=== PATIENT | male | born 1995 | race Caucasian/White ===

== ENCOUNTER 2018-10-22 20:17 | Emergency (ER) | payer SELFPAY ==
[~2018-10-22] VITALS: Ht 175.3 cm; Wt 56.7 kg
[2018-10-22 20:21] VITALS: BP 138/74
--- NOTE | 2018-10-22 22:13 | RAD ---
CHEST PA LATERAL History: COUGH, CONGESTION, SOA X1 WEEK. Heart size is not enlarged. No evidence of pneumothorax. No evidence of pleural effusion. No evidence of consolidating infiltrate. Regional skeleton appears intact. IMPRESSION: No evidence of consolidating infiltrate. Electronically signed by: Claus Hutchins MD (10/22/2018 10:10 PM) [facility]
--- NOTE | 2018-10-22 22:28 | PHYS DOC ---
Past Medical History Past Medical History: No Pertinent History (JONELLE SCHNEIDER APRN) Past Surgical History: No Surgical History (JONELLE SCHNEIDER APRN) Additional Information: nonsmoker Alcohol Use: None Drug Use: Marijuana (JONELLE SCHNEIDER APRN) Adult General Chief Complaint Chief Complaint: COUGH HPI HPI Patient is a 23-year-old male that presents with loss of appetite, sore throat, cough, and upper respiratory symptoms since Sunday. URI symptoms have improved and he is able to keep fluids down. Has been trying OTC medications at home which has been helping. The severity of the illness is 5/10, with no pain but has body aches. His girlfriend has had similar symptoms. (JONELLE SCHNEIDER APRN) Review of Systems Review of Systems Constitutional: Reports fever and chills [] Eyes: Denies change in visual acuity, redness, or eye pain [] HENT: Reports nasal congestion and sore throat [] Respiratory: Reports cough, denies shortness of breath [] Cardiovascular: Denies CP or palpitations GI: Denies abdominal pain, nausea, vomiting, Reports diarrhea [] : Denies dysuria or hematuria [] Musculoskeletal: Denies back pain or joint pain [] Integument: Denies rash or skin lesions [] Neurologic: Denies headache, focal weakness or sensory changes [] Endocrine: Denies polyuria or polydipsia [] Complete systems were reviewed and found to be within normal limits, except as documented in this note. (JONELLE SCHNEIDER APRN) Allergies Allergies Allergies Coded Allergies Type Severity Reaction Last Updated Verified No Known Drug Allergies 10/22/18 No (ONELIA ROBINS MD) Physical Exam Physical Exam Constitutional: Well developed, well nourished, no acute distress, non-toxic appearance. [] HENT: Normocephalic, atraumatic, oropharynx moist, no oral exudates, nose normal. [] Eyes: PERRLA, conjunctiva normal, no discharge. [] Neck: Normal range of motion, no tenderness, supple, no stridor. [] Cardiovascular:Heart rate regular rhythm, no murmur [] Lungs & Thorax: Bilateral breath sounds clear to auscultation [] Abdomen: Soft, no tenderness, no masses, no pulsatile masses. [] Skin: Warm, dry, no erythema, no rash. [] Back: No tenderness, no CVA tenderness. [] Extremities: No tenderness, no cyanosis, no clubbing, ROM intact, no edema. [] Neurologic: Alert and oriented X 3, normal motor function, normal sensory function, no focal deficits noted. [] Psychologic: Affect normal, judgement normal, mood normal. [] (JONELLE SCHNEIDER APRN) Current Patient Data Vital Signs Vital Signs Date Time Temp Pulse Resp B/P (MAP) Pulse Ox O2 Delivery O2 Flow Rate FiO2 10/22/18 20:21 98.3 105 18 138/74 (95) 99 Room Air 98.3 (ONELIA ROBINS MD) EKG EKG [] (JONELLE SCHNEIDER APRN) Radiology/Procedures Radiology/Procedures []PATIENT: ELTON DENIS MACCOUNT: [id number]#: [id number] : 1995 LOCATION: ER AGE: 23 SEX: M EXAM STATUS: REG ER ORD. PHYSICIAN: JONELLE SCHNEIDER APRN REASON: cough PROCEDURE: CHEST PA & LATERAL CHEST PA LATERAL History: COUGH, CONGESTION, SOA X1 WEEK. Heart size is not enlarged. No evidence of pneumothorax. No evidence of pleural effusion. No evidence of consolidating infiltrate. Regional skeleton appears intact. IMPRESSION: No evidence of consolidating infiltrate. Electronically signed by: Jonelle Hutchins MD (10/22/2018 10:10 PM) [facility] (JONELLE SCHNEIDER APRN) Course & Med Decision Making Course & Med Decision Making Pertinent Labs and Imaging studies reviewed. (See chart for details) Discussed with patient that his signs and symptoms were likely viral in nature and it has to run its course. Ordered a chest x-ray to r/o pneumonia has he had been coughing a lot. Chest x-ray was negative. Offered IV fluids, patient declined. Offered Tessalon Perles to go home and patient declined and states that he will keep using OTC medications. Will send patient home and discussed with him that he is contagious. (JONELLE SCHNEIDER APRN) Course & Med Decision Making Staff Physician Addendum: I was working in the ER during the course of this patient's visit. I was available for consultation as needed, but I was not directly involved in the care of this patient. (ONELIA ROBINS MD) Dragon Disclaimer Dragon Disclaimer This electronic medical record was generated, in whole or in part, using a voice recognition dictation system. (JONELLE SCHNEIDER APRN) Departure Departure Impression: Primary Impression: Viral illness Disposition: HOME, SELF-CARE Condition: STABLE Referrals: NO PCP (PCP) Additional Instructions: Please continue to use supportive care, fluids, and OTC medications. Do not work until you have been afebrile for 24 hours. JONELLE SCHNEIDER APRN Oct 22, 2018 22:28 ONELIA ROBINS MD October 23, 2018 00:16
== END 2018-10-22 22:42 | disposition home or self-care (01) ==
LOC: ER 20:17
DX: B33.8 Other specified viral diseases (principal); J02.9 Acute pharyngitis, unspecified; R50.9 Fever, unspecified; R09.81 Nasal congestion; R05 Cough; R63.0 Anorexia
CPT/HCPCS: 71046; 99284

== ENCOUNTER 2019-01-06 15:35 | Emergency (ER) | payer SELFPAY ==
[~2019-01-06] VITALS: Ht 172.7 cm; Wt 61.2 kg
--- NOTE | 2019-01-06 16:30 | RAD ---
Chest, PA and Lateral: Technique: PA and lateral views of the chest were obtained. History: Chest pain. Comparison: 10/22/2018. Findings: The heart and pulmonary vasculature appear within normal limits. The lungs are clear. The pleural margins are clear. Impression: No acute chest process is seen. Electronically signed by: Anand Bassett MD (01/06/2019 4:27 PM) [id number]
[2019-01-06 16:36] LABS: HEMOGLOBIN ISTAT 13.6 g/dL (14-18); ION CA ISTAT 1.19 mmol/L (1.13-1.32); POTASSIUM ISTAT 3.7 mmol/L (3.5-5.0)
[2019-01-06 16:40] LABS: BILIRUBIN,URINE NEGATIVE (NEG); CLARITY,URINE CLEAR; COLOR,URINE YELLOW; NITRITE,URINE NEGATIVE (NEG); PH,URINE 5.5; PROTEIN,URINE NEGATIVE (NEG-TRACE); UROBILINOGEN,URINE 0.2 mg/dL (0.2 mg/dL)
--- NOTE | 2019-01-06 16:44 | PHYS DOC ---
Past Medical History Past Medical History: No Pertinent History Past Surgical History: No Surgical History Alcohol Use: Occasionally Drug Use: Marijuana Adult General Chief Complaint Chief Complaint: CHEST PAIN HPI HPI Patient is a 23 year old male patient presenting to the ED today with substernal 6 out of 10 sharp chest pain worse when he lifts items at work and moves his arms around, symptoms began today at noon. Denies pain radiating to his back. Denies any family history of cardiac events before the age of 50. He states his father of cancer, he states his mother is still alive with diabetes. He states immobilization relieves the pain. Denies any history of smoking. Review of Systems Review of Systems Constitutional: Denies fever or chills [] Eyes: Denies change in visual acuity, redness, or eye pain [] HENT: Denies nasal congestion or sore throat [] Respiratory: Denies cough or shortness of breath [] Cardiovascular: Reports chest pain GI: Denies abdominal pain, nausea, vomiting, bloody stools or diarrhea [] : Denies dysuria or hematuria [] Musculoskeletal: Denies back pain or joint pain [] Integument: Denies rash or skin lesions [] Neurologic: Denies headache, focal weakness or sensory changes [] ] All other systems were reviewed and found to be within normal limits, except as documented in this note. Allergies Allergies Allergies Coded Allergies Type Severity Reaction Last Updated Verified No Known Drug Allergies 10/22/18 No Physical Exam Physical Exam Constitutional: Well developed, well nourished, no acute distress, non-toxic appearance. [] HENT: Normocephalic, atraumatic, bilateral external ears normal, oropharynx moist, no oral exudates, nose normal. [] Eyes: PERRLA, EOMI, conjunctiva normal, no discharge. [] Neck: Normal range of motion, no tenderness, supple, no stridor. [] Cardiovascular:Heart rate regular rhythm, no murmur [] Lungs & Thorax: Bilateral breath sounds clear to auscultation [] Abdomen: Bowel sounds normal, soft, no tenderness, no masses, no pulsatile ma sses. [] Skin: Warm, dry, no erythema, no rash. [] Back: No tenderness, no CVA tenderness. [] Extremities: No tenderness, no cyanosis, no clubbing, ROM intact, no edema. [] Neurologic: Alert and oriented X 3, normal motor function, normal sensory function, no focal deficits noted. [] Psychologic: Affect normal, judgement normal, mood normal. [] Current Patient Data Vital Signs Vital Signs Date Time Temp Pulse Resp B/P (MAP) Pulse Ox O2 Delivery O2 Flow Rate FiO2 01/06/19 15:46 98.2 90 16 120/72 (88) 99 Room Air 98.2 Lab Values Laboratory Tests Test 01/06/19 16:25 POC Hemoglobin 13.6 g/dL (14-18) L POC Hematocrit 40 % (37-52) Urine Collection Type Void Urine Color Yellow Urine Clarity Clear Urine pH 5.5 Urine Specific [place] 1.025 Urine Protein Negative mg/dL (NEG-TRACE) Urine Glucose (UA) Negative mg/dL (NEG) Urine Ketones (Stick) Negative mg/dL (NEG) Urine Blood Negative (NEG) Urine Nitrite Negative (NEG) Urine Bilirubin Negative (NEG) Urine Urobilinogen Dipstick 0.2 mg/dL (0.2 mg/dL) Urine Leukocyte Esterase Negative (NEG) Urine RBC 0 /HPF (0-2) Urine WBC Rare /HPF (0-4) Urine Bacteria 0 /HPF (0-FEW) Urine Mucus Marked /LPF POC Sodium 142 mmol/L (135-145) POC Potassium 3.7 mmol/L (3.5-5.0) POC Chloride 104 mmol/L (98-110) POC Total CO2 26 mmol/L (23-32) Anion Gap 16 mmol/L (6-14) H POC Blood Urea Nitrogen 5 mg/dL (8-26) L POC Creatinine 1.0 mg/dL (0.5-1.4) Glucose Level 82 mg/dL (70-99) POC Ionized Calcium (Aurea) 1.19 mmol/L (1.13-1.32) POC Troponin I 0.00 ng/ml (<0.08) Laboratory Tests 01/06/19 16:25 EKG EKG [address] Singleton sinus rhythm HR 83 no STEMI Radiology/Procedures Radiology/Procedures []PROCEDURE: CHEST PA & LATERAL Chest, PA and Lateral: Technique: PA and lateral views of the chest were obtained. History: Chest pain. Comparison: 10/22/2018. Findings: The heart and pulmonary vasculature appear within normal limits. The lungs are clear. The pleural margins are clear. Impression: No acute chest process is seen. Electronically signed by: Anand Bassett MD (01/06/2019 4:27 PM) [facility] DICTATED and SIGNED BY: ANAND BASSETT MD DATE: 01/06/19 1627 Course & Med Decision Making Course & Med Decision Making Pertinent Labs and Imaging studies reviewed. (See chart for details) This is a 23-year-old male patient with no significant medical history presented to the ED today complaining of substernal chest pain only when he is moving his arms or lifting heavy items. EKG is negative, i-STAT troponin and i-STAT chemistry negative. Vitals are stable. No cardiac history in the family. See Heart score below. Patient was discharged to home. OTC pain relievers recommended. Follow-up with pediatric audiologist. Dragon Disclaimer Dragon Disclaimer This electronic medical record was generated, in whole or in part, using a voice recognition dictation system. The HEART Score for CP Pts HEART Score for Chest Pain: HEART Score for Chest Pain Response (Comments) Value History Slighlty/Non-Suspicious 0 ECG Normal 0 Age < 45 0 Risk Factors No Risk Factors 0 Troponin < Normal Limit 0 Total 0 Risk Factors: Risk Factors: DM, Current or recent (<one month) smoker, HTN, HLP, family history of CAD, obesity. Risk Scores: Score 0 - 3: 2.5% MACE over next 6 weeks - Discharge Home Score 4 - 6: 20.3% MACE over next 6 weeks - Admit for Clinical Observation Score 7 - 10: 72.7% MACE over next 6 weeks - Early Invasive Strategies Departure Departure Impression: Primary Impression: Chest pain Disposition: HOME, SELF-CARE Condition: STABLE Referrals: NO PCP (PCP) GLEN DASH MD Follow up in one week Patient Instructions: Chest Pain (Nonspecific), [id number] Additional Instructions: You were evaluated for chest pain, your cardiac workup is negative. We provided you pediatric audiologist, follow-up with them as needed. Take Tylenol/Motrin as needed for pain. Avoid lifting heavy items if this is the source of your pain. Problem Qualifiers Primary Impression: Chest pain Chest pain type: unspecified Qualified Codes: R07.9 - Chest pain, unspecified GUADALUPEJILLIAN FISHING VESSEL MATE Jan 06, 2019 16:43
[2019-01-06 16:47] LABS: BACTERIA,URINE 0 /HPF (0-FEW); RBC,URINE 0 /HPF (0-2); WBC,URINE RARE /HPF (0-4)
[2019-01-06 17:07] LABS: BARBITURATES NEG (NEG); BENZODIAZEPINES NEG (NEG); CANNABINOIDS POS (NEG); COCAINE NEG (NEG); METHADONE NEG (NEG); OPIATES NEG (NEG); PHENCYCLIDINE NEG (NEG)
[2019-01-06 17:09] LABS: AMPHETAMINE/METHAMPHETAMINE NEG (NEG)
[2019-01-06 17:18] VITALS: BP 110/72
--- NOTE | 2019-01-07 07:02 | EKG ---
[facility] [address] [place] [address] Test Date: 2019-01-06 Test Time: 15:42:29 Pat Name: ELTON DENIS Department: Room: Gender: T[employer] Straightener: : 1995 Requested By: JILLIAN BUTCHER Order Number: [id number] Reading MD: Measurements Intervals [place] Rate: 83 P: 63 [place]: 148 QRS: 48 QRSD: 72 T: 54 QT: 322 QTc: 383 Interpretive Statements SINUS RHYTHM LEFT ATRIAL ABNORMALITY QRS(T) CONTOUR ABNORMALITY CONSIDER ANTEROLATERAL MYOCARDIAL DAMAGE ABNORMAL ECG RI6.01 No previous ECG available for comparison
== END 2019-01-06 17:19 | disposition home or self-care (01) ==
LOC: ER 15:35
DX: R07.2 Precordial pain (principal)
CPT/HCPCS: 71046; 80047; 80307; 81001; 84484; 93005; 99285

== ENCOUNTER 2019-04-22 08:04 | Emergency (ER) | payer SELFPAY ==
[~2019-04-22] VITALS: Ht 175.3 cm; Wt 56.7 kg
[2019-04-22] MEDS ORDERED: IV NORMAL SALINE 1000ML BAG 1,000 ML IV SCH (08:16)
[2019-04-22] MEDS ORDERED: KETOROLAC 30 MG/ML VIAL. ONE (08:21)
--- NOTE | 2019-04-22 08:23 | PHYS DOC ---
Past Medical History Past Medical History: No Pertinent History Past Surgical History: No Surgical History Alcohol Use: Occasionally Drug Use: Marijuana Adult General Chief Complaint Chief Complaint: ABDOMINAL PAIN HPI HPI Patient is a 23-year-old male who presents with complaint of generalized abdominal pain that started about 10 hours ago after eating [employer] last night. Patient states that he thinks he has food poisoning. He states that he has had a little bit of nausea but no vomiting. He states that he tried to induce vomiting but was unable to do so. He denies any diarrhea. He denies any fever. Patient rates his pain to be an 8 to a 9 out of 10. He denies any radiation of the pain. Patient very demanding of staff, stating that he needs a strong pain medicine through the IV immediately upon arrival.[] Review of Systems Review of Systems Constitutional: Denies fever or chills [] Respiratory: Denies cough or shortness of breath [] Cardiovascular: No additional information not addressed in HPI [] GI: Complains of abdominal pain without vomiting or diarrhea [] : Denies dysuria or hematuria [] Musculoskeletal: Denies back pain or joint pain [] All other systems were reviewed and found to be within normal limits, except as documented in this note. Current Medications Current Medications Current Medications Medications (Trade) Dose Ordered Sig/Angelique Start Time Stop Time Status Last Admin Dose Admin Info (CONTRAST GIVEN -- Rx MONITORING) 1 each PRN DAILY PRN 04/22/19 08:45 04/24/19 08:44 Iohexol (Omnipaque 300 Mg/ml) 75 ml 1X ONCE 04/22/19 08:45 04/22/19 08:46 DC 04/22/19 08:52 75 ML Ketorolac Tromethamine (Toradol 30mg Vial) 30 mg STK-MED ONCE 04/22/19 08:21 04/22/19 08:22 DC Ondansetron HCl (Zofran) 4 mg 1X ONCE 04/22/19 08:30 04/22/19 08:31 DC 04/22/19 08:23 4 MG Sodium Chloride 1,000 ml @ 1,000 mls/hr Q1H 04/22/19 08:16 04/22/19 09:15 DC 04/22/19 08:24 1,000 MLS/HR Allergies Allergies Allergies Coded Allergies Type Severity Reaction Last Updated Verified No Known Drug Allergies 10/22/18 No Physical Exam Physical Exam Constitutional: Well developed, well nourished, no acute distress, non-toxic appearance. [] HENT: Normocephalic, atraumatic, bilateral external ears normal, oropharynx moist, no oral exudates, nose normal. [] Eyes: PERRLA, EOMI, conjunctiva normal, no discharge. [] Neck: Normal range of motion, no tenderness, supple. [] Cardiovascular: Regular rate and rhythm[] Lungs & Thorax: Bilateral breath sounds clear to auscultation [] Abdomen: Bowel sounds normal, soft, with diffuse reported tenderness, no guarding. [] Skin: Warm, dry, no erythema, no rash. [] Extremities: No tenderness, no cyanosis, no clubbing, ROM intact, no edema. [] Neurologic: Alert and oriented X 3, normal motor function, normal sensory function, no focal deficits noted. [] Current Patient Data Vital Signs Vital Signs Date Time Temp Pulse Resp B/P (MAP) Pulse Ox O2 Delivery O2 Flow Rate FiO2 04/22/19 08:08 98.1 63 16 117/77 (90) 99 Room Air 98.1 Lab Values Laboratory Tests Test 04/22/19 08:12 White Blood Count 16.8 x10^3/uL (4.0-11.0) H Red Blood Count 5.01 x10^6/uL (4.30-5.70) Hemoglobin 15.1 g/dL (13.0-17.5) Hematocrit 46.0 % (39.0-53.0) Mean Corpuscular Volume 92 fL (79-100) Mean Corpuscular Hemoglobin 30 pg (25-35) Mean Corpuscular Hemoglobin Concent 33 g/dL (31-37) Red Cell Distribution Width 13.7 % (11.5-14.5) Platelet Count 190 x10^3/uL (140-400) Neutrophils (%) (Auto) 85 % (31-73) H Lymphocytes (%) (Auto) 7 % (24-48) L Monocytes (%) (Auto) 7 % (0-9) Eosinophils (%) (Auto) 1 % (0-3) Basophils (%) (Auto) 0 % (0-3) Neutrophils # (Auto) 14.2 x10^3/uL (1.8-7.7) H Lymphocytes # (Auto) 1.2 x10^3/uL (1.0-4.8) Monocytes # (Auto) 1.1 x10^3/uL (0.0-1.1) Eosinophils # (Auto) 0.2 x10^3/uL (0.0-0.7) Basophils # (Auto) 0.1 x10^3/uL (0.0-0.2) Platelet Estimate Pending Sodium Level 142 mmol/L (136-145) Potassium Level 3.8 mmol/L (3.5-5.1) Chloride Level 105 mmol/L (98-107) Carbon Dioxide Level 28 mmol/L (21-32) Anion Gap 9 (6-14) Blood Urea Nitrogen 6 mg/dL (8-26) L Creatinine 1.0 mg/dL (0.7-1.3) Estimated GFR (Cockcroft-Gault) 92.6 BUN/Creatinine Ratio 6 (6-20) Glucose Level 106 mg/dL (70-99) H Calcium Level 8.8 mg/dL (8.5-10.1) Total Bilirubin 0.7 mg/dL (0.2-1.0) Aspartate Amino Transferase (AST) 20 U/L (15-37) Alanine Aminotransferase (ALT) 11 U/L (16-63) L Alkaline Phosphatase 53 U/L (46-116) Total Protein 6.7 g/dL (6.4-8.2) Albumin 3.8 g/dL (3.4-5.0) Albumin/Globulin Ratio 1.3 (1.0-1.7) Lipase 108 U/L (73-393) Laboratory Tests 04/22/19 08:12 Laboratory Tests 04/22/19 08:12 EKG EKG [] Radiology/Procedures Radiology/Procedures [] Impressions: PROCEDURE: CT ABD PELV W/ IV CONTRST ONLY CT ABD PELV W/ IV CONTRST ONLY Indication: Generalized abdominal pain Technique: Postcontrast CT imaging was performed of the abdomen pelvis, multiplanar reconstruction images submitted. No oral contrast was given. One or more of the following individualized dose reduction techniques were utilized for this examination: 1. Automated exposure control 2. Adjustment of the mA and/or kV according to patient size 3. Use of iterative reconstruction technique. Comparison: None Findings: There is no abnormality of the limited visualized lung bases. No focal abnormalities identified of the liver, pancreas, spleen. Gallbladder is present without obvious intraluminal abnormality by CT there is no adrenal nodularity. Both kidneys enhance, no hydronephrosis. Accurate evaluation of bowel somewhat limited without oral contrast and also due to the paucity of intra-abdominal and intrapelvic fat. At least a segment of normal caliber appendix is believed to be visualized. There is no bowel dilatation, free fluid, free air. IMPRESSION: 1. No convincing acute abnormality is identified, limited evaluation of bowel without oral contrast. At least a segment of normal appendix is believed to be visualized. Electronically signed by: Gege Gamez MD (04/22/2019 9:08 AM) [facility] DICTATED and SIGNED BY: GEGE GAMEZ MD DATE: 04/22/19907 Course & Med Decision Making Course & Med Decision Making Pertinent Labs and Imaging studies reviewed. (See chart for details) [] Dragon Disclaimer Dragon Disclaimer This electronic medical record was generated, in whole or in part, using a voice recognition dictation system. Departure Departure Impression: Primary Impression: Generalized abdominal pain Disposition: HOME, SELF-CARE Condition: STABLE Referrals: NO PCP (PCP) Patient Instructions: Abdominal Pain Scripts Dicyclomine Hcl (DICYCLOMINE HCL) 20 Mg Tablet 1 TAB PO TID PRN for abdominal discomfort, #21 TAB Prov: ROLANDO LUJAN Jr. DO 04/22/19 Ondansetron Hcl (ZOFRAN) 4 Mg Tablet 4 MG PO PRN TID PRN for NAUSEA, #15 TAB nausea/vomiting Prov: ROLANDO LUJAN Jr. DO 04/22/19 ROLANDO LUJAN Jr. DO Apr 22, 2019 08:23
[2019-04-22 08:27] LABS: BASO # 0.1 x10^3/uL (0.0-0.2); BASO % 0 % (0-3); EOS # 0.2 x10^3/uL (0.0-0.7); EOS % 1 % (0-3); HEMOGLOBIN 15.1 g/dL (13.0-17.5); LYMPH # 1.2 x10^3/uL (1.0-4.8); LYMPH % 7 % (24-48); MEAN CORPUSCULAR HEMOGLOBIN 30 pg (25-35); MEAN CORPUSCULAR HGB CONC 33 g/dL (31-37); MEAN CORPUSCULAR VOLUME 92 fL (79-100); MONO # 1.1 x10^3/uL (0.0-1.1); MONO % 7 % (0-9); NEUT # 14.2 x10^3/uL (1.8-7.7); NEUT % 85 % (31-73); PLATELET COUNT 190 x10^3/uL (140-400); RED BLOOD COUNT 5.01 x10^6/uL (4.30-5.70); RED CELL DISTRIBUTION WIDTH 13.7 % (11.5-14.5); WHITE BLOOD COUNT 16.8 x10^3/uL (4.0-11.0)
[2019-04-22] MEDS ORDERED: KETOROLAC 30 MG/ML VIAL. IV ONE (08:30)
[2019-04-22] MEDS ORDERED: ONDANSETRON PF 4 MG/2 ML VIAL. IV ONE (08:30)
[2019-04-22 08:32] LABS: CALCIUM 8.8 mg/dL (8.5-10.1); GFR 92.6; POTASSIUM 3.8 mmol/L (3.5-5.1)
[2019-04-22 08:38] LABS: ALBUMIN 3.8 g/dL (3.4-5.0); ALBUMIN/GLOBULIN RATIO 1.3 (1.0-1.7); TOTAL BILIRUBIN 0.7 mg/dL (0.2-1.0); TOTAL PROTEIN 6.7 g/dL (6.4-8.2)
[2019-04-22] MEDS ORDERED: IOHEXOL 300 MG/ML 100ML VIAL. IV ONE (08:45)
[2019-04-22] MEDS ORDERED: CONTRAST GIVEN. MC PRN (08:45)
--- NOTE | 2019-04-22 09:12 | RAD ---
CT ABD PELV W/ IV CONTRST ONLY Indication: Generalized abdominal pain Technique: Postcontrast CT imaging was performed of the abdomen pelvis, multiplanar reconstruction images submitted. No oral contrast was given. One or more of the following individualized dose reduction techniques were utilized for this examination: 1. Automated exposure control 2. Adjustment of the mA and/or kV according to patient size 3. Use of iterative reconstruction technique. Comparison: None Findings: There is no abnormality of the limited visualized lung bases. No focal abnormalities identified of the liver, pancreas, spleen. Gallbladder is present without obvious intraluminal abnormality by CT there is no adrenal nodularity. Both kidneys enhance, no hydronephrosis. Accurate evaluation of bowel somewhat limited without oral contrast and also due to the paucity of intra-abdominal and intrapelvic fat. At least a segment of normal caliber appendix is believed to be visualized. There is no bowel dilatation, free fluid, free air. IMPRESSION: 1. No convincing acute abnormality is identified, limited evaluation of bowel without oral contrast. At least a segment of normal appendix is believed to be visualized. Electronically signed by: Alvaro Muniz MD (04/22/2019 9:08 AM) [facility]
[2019-04-22 09:17] VITALS: BP 100/68
[2019-04-22] MEDS ORDERED: ONDA4TAB7 PO (09:26)
[2019-04-22] MEDS ORDERED: DICY20TA3 PO (09:26)
[2019-04-22] MEDS ORDERED: diphenhydrAMINE 50 MG/ML VIAL IVP ONE (09:30)
[2019-04-22] MEDS ORDERED: METOCLOPRAMIDE HCL 10 MG/2 ML VIAL. IVP ONE (09:30)
[2019-04-22 09:41] LABS: BILIRUBIN,URINE NEGATIVE (NEG); CLARITY,URINE CLEAR; COLOR,URINE YELLOW; NITRITE,URINE NEGATIVE (NEG); PH,URINE 7.5; PROTEIN,URINE NEGATIVE (NEG-TRACE); UROBILINOGEN,URINE 0.2 mg/dL (0.2 mg/dL)
[2019-04-22 09:44] LABS: % BANDS 10 % (0-9); % LYMPHS 10 % (24-48); % MONOS 3 % (0-10); % SEGS 77 % (35-66); PLT ESTIMATE ADEQUATE (ADEQUATE)
[2019-04-22 09:45] LABS: TOXIC GRANULATION PRESENT
[2019-04-22 09:46] LABS: BARBITURATES NEG (NEG); BENZODIAZEPINES NEG (NEG); CANNABINOIDS POS (NEG); COCAINE NEG (NEG); METHADONE NEG (NEG); OPIATES NEG (NEG); PHENCYCLIDINE NEG (NEG)
[2019-04-22 09:47] LABS: AMPHETAMINE/METHAMPHETAMINE NEG (NEG)
[2019-04-22 10:23] LABS: SQUAMOUS EPITHELIAL CELL,UR FEW /LPF
[2019-04-22 10:27] LABS: SPERM,URINE PRESENT /HPF
[2019-04-22 10:28] LABS: BACTERIA,URINE FEW /HPF (0-FEW); RBC,URINE RARE /HPF (0-2); WBC,URINE RARE /HPF (0-4)
== END 2019-04-22 10:07 | disposition home or self-care (01) ==
LOC: ER 08:04
DX: R10.84 Generalized abdominal pain (principal)
CPT/HCPCS: 36415; 74177; 80053; 80307; 81001; 83690; 85007; 85025; 96374; 96375; 99285; J1885; J2405; J7030; Q9967

== ENCOUNTER 2019-04-24 16:14 | Inpatient (IN) | payer SELFPAY ==
[~2019-04-24] VITALS: Ht 172.7 cm; Wt 56.4 kg
[~2019-04-24 16:14] MED LIST: DICY20TA3 PO; ONDA4TAB7 PO
--- NOTE | 2019-04-24 17:28 | PHYS DOC ---
Past Medical History Past Medical History: No Pertinent History (RIAN DUGAN APRN) Past Surgical History: No Surgical History (RIAN DUGAN APRN) Alcohol Use: Occasionally Drug Use: Marijuana (RIAN DUGAN APRN) Attending Signature I have participated in the care of this patient and I have reviewed and agree with all pertinent clinical information above including history, exam, and recommendations. (TONO DANIEL MD) Adult General Chief Complaint Chief Complaint: ABDOMINAL PAIN HPI HPI Patient is a 23 year old [male who presents with [lower quadrant abdominal pain. Patient reports he had been seen here 2 days ago, had labs and imaging done, was told he had a virus in nature just run its course. Patient reports he had given it a couple days to run its course, continues to ask for discomfort. States his pain has gotten worse. States he started have some diarrhea today, denies any constipation. States he does feel he is a little bit of a fever today. States he has no appetite, discomfort continues. States when he urinates only a small amount of urine comes out at that time. States he has noticed his urine to be a little bit darker today.] (RIAN DUGAN APRN) Review of Systems Review of Systems Constitutional: Reports chills today[] Eyes: Denies change in visual acuity, redness, or eye pain [] HENT: Denies nasal congestion or sore throat [] Respiratory: Denies cough or shortness of breath [] Cardiovascular: No additional information not addressed in HPI [] GI: Reports lower right abdominal pain, nausea. Denies vomiting, reports 2 episodes of diarrhea today. Reports pain unchanged since last visit couple days ago.[] : Denies dysuria or hematuria does report his urine seemed to be darker today than normal [] Musculoskeletal: Denies back pain or joint pain [] Integument: Denies rash or skin lesions [] Neurologic: Denies headache, focal weakness or sensory changes [] Endocrine: Denies polyuria or polydipsia [] All other systems were reviewed and found to be within normal limits, except as documented in this note. (RIAN DUGAN APRN) Current Medications Current Medications Current Medications Medications (Trade) Dose Ordered Sig/Angelique Start Time Stop Time Status Last Admin Dose Admin Info (CONTRAST GIVEN -- Rx MONITORING) 1 each PRN DAILY PRN 04/24/19 18:15 04/26/19 18:14 Iohexol (Omnipaque 240 Mg/ml) 50 ml 1X ONCE 04/24/19 18:15 04/24/19 18:16 DC 04/24/19 19:00 50 ML Iohexol (Omnipaque 300 Mg/ml) 75 ml 1X ONCE 04/24/19 18:15 04/24/19 18:16 DC 04/24/19 19:00 75 ML Ketorolac Tromethamine (Toradol 15mg Vial) 15 mg 1X ONCE 04/24/19 18:00 04/24/19 18:01 DC 04/24/19 18:06 15 MG Ondansetron HCl (Zofran) 4 mg 1X ONCE 04/24/19 18:00 04/24/19 18:01 DC 04/24/19 18:06 4 MG Piperacillin Sod/ Tazobactam Sod 3.375 gm/Sodium Chloride 50 ml @ 100 mls/hr 1X ONCE 04/24/19 19:45 04/24/19 20:14 DC 04/24/19 20:06 100 MLS/HR Sodium Chloride 1,000 ml @ 1,000 mls/hr 1X ONCE 04/24/19 18:00 04/24/19 18:59 DC 04/24/19 18:05 1,000 MLS/HR (TONO DANIEL MD) Allergies Allergies Allergies Coded Allergies Type Severity Reaction Last Updated Verified No Known Drug Allergies 10/22/18 No (TONO DANIEL MD) Physical Exam Physical Exam Constitutional: Well developed, well nourished, no acute distress, non-toxic appearance. [] Neck: Normal range of motion, no tenderness, supple, no stridor. [] Cardiovascular:Heart rate regular rhythm, no murmur [] Lungs & Thorax: Bilateral breath sounds clear to auscultation [] Abdomen: Bowel sounds normal, soft, no masses, no pulsatile masses. Tenderness noted on palpation to right lower quadrant, no rebound tenderness noted. Positive discomfort at McBurney's point. Positive psoas, negative Rovsing, positive obturator[] Skin: Warm, dry, no erythema, no rash. [] Back: No tenderness, bilateral lower back CVA tenderness. [] Extremities: No tenderness, no cyanosis, no clubbing, ROM intact, no edema. [] Neurologic: Alert and oriented X 3, normal motor function, normal sensory function, no focal deficits noted. [] Psychologic: Affect normal, judgement normal, mood normal. [] (RIAN DUGAN APRN) Current Patient Data Vital Signs Vital Signs Date Time Temp Pulse Resp B/P (MAP) Pulse Ox O2 Delivery O2 Flow Rate FiO2 04/24/19 19:30 96 18 110/67 (81) 98 Room Air 04/24/19 16:52 99.1 99.1 (TONO DANIEL MD) Lab Values Laboratory Tests Test 04/24/19 16:25 04/24/19 17:50 04/24/19 18:50 Urine Collection Type Unknown Urine Color Janiya Urine Clarity Cloudy Urine pH 5.5 Urine Specific [place] >=1.030 Urine Protein 100 mg/dL (NEG-TRACE) Urine Glucose (UA) Negative mg/dL (NEG) Urine Ketones (Stick) 15 mg/dL (NEG) Urine Blood Large (NEG) Urine Nitrite Negative (NEG) Urine Bilirubin Small (NEG) Urine Urobilinogen Dipstick 1.0 mg/dL (0.2 mg/dL) Urine Leukocyte Esterase Negative (NEG) Urine RBC 3-5 /HPF (0-2) Urine WBC 0 /HPF (0-4) Urine Amorphous Sediment Present /HPF Urine Bacteria 0 /HPF (0-FEW) Urine Mucus Mod /LPF White Blood Count 23.6 x10^3/uL (4.0-11.0) H Red Blood Count 4.79 x10^6/uL (4.30-5.70) Hemoglobin 14.5 g/dL (13.0-17.5) Hematocrit 42.9 % (39.0-53.0) Mean Corpuscular Volume 90 fL (79-100) Mean Corpuscular Hemoglobin 30 pg (25-35) Mean Corpuscular Hemoglobin Concent 34 g/dL (31-37) Red Cell Distribution Width 13.6 % (11.5-14.5) Platelet Count 157 x10^3/uL (140-400) Neutrophils (%) (Auto) 88 % (31-73) H Lymphocytes (%) (Auto) 3 % (24-48) L Monocytes (%) (Auto) 9 % (0-9) Eosinophils (%) (Auto) 0 % (0-3) Basophils (%) (Auto) 0 % (0-3) Neutrophils # (Auto) 20.8 x10^3/uL (1.8-7.7) H Lymphocytes # (Auto) 0.6 x10^3/uL (1.0-4.8) L Monocytes # (Auto) 2.1 x10^3/uL (0.0-1.1) H Eosinophils # (Auto) 0.0 x10^3/uL (0.0-0.7) Basophils # (Auto) 0.1 x10^3/uL (0.0-0.2) Segmented Neutrophils % 88 % (35-66) H Band Neutrophils % 5 % (0-9) Lymphocytes % 4 % (24-48) L Monocytes % 3 % (0-10) Platelet Estimate Adequate (ADEQUATE) Sodium Level 140 mmol/L (136-145) Potassium Level 3.7 mmol/L (3.5-5.1) Chloride Level 101 mmol/L (98-107) Carbon Dioxide Level 29 mmol/L (21-32) Anion Gap 10 (6-14) Blood Urea Nitrogen 10 mg/dL (8-26) Creatinine 1.1 mg/dL (0.7-1.3) Estimated GFR (Cockcroft-Gault) 83.0 BUN/Creatinine Ratio 9 (6-20) Glucose Level 94 mg/dL (70-99) Calcium Level 8.9 mg/dL (8.5-10.1) Total Bilirubin 1.3 mg/dL (0.2-1.0) H Aspartate Amino Transferase (AST) 14 U/L (15-37) L Alanine Aminotransferase (ALT) 12 U/L (16-63) L Alkaline Phosphatase 58 U/L (46-116) Total Protein 7.0 g/dL (6.4-8.2) Albumin 3.2 g/dL (3.4-5.0) L Albumin/Globulin Ratio 0.8 (1.0-1.7) L Lactic Acid Level 0.9 mmol/L (0.4-2.0) Laboratory Tests 04/24/19 17:50 Laboratory Tests 04/24/19 17:50 (TONO DANIEL MD) Lab Values Laboratory Tests Test 04/24/19 16:25 04/24/19 17:50 04/24/19 18:50 Urine Collection Type Unknown Urine Color Janiya Urine Clarity Cloudy Urine pH 5.5 Urine Specific [place] >=1.030 Urine Protein 100 mg/dL (NEG-TRACE) Urine Glucose (UA) Negative mg/dL (NEG) Urine Ketones (Stick) 15 mg/dL (NEG) Urine Blood Large (NEG) Urine Nitrite Negative (NEG) Urine Bilirubin Small (NEG) Urine Urobilinogen Dipstick 1.0 mg/dL (0.2 mg/dL) Urine Leukocyte Esterase Negative (NEG) Urine RBC 3-5 /HPF (0-2) Urine WBC 0 /HPF (0-4) Urine Amorphous Sediment Present /HPF Urine Bacteria 0 /HPF (0-FEW) Urine Mucus Mod /LPF White Blood Count 23.6 x10^3/uL (4.0-11.0) H Red Blood Count 4.79 x10^6/uL (4.30-5.70) Hemoglobin 14.5 g/dL (13.0-17.5) Hematocrit 42.9 % (39.0-53.0) Mean Corpuscular Volume 90 fL (79-100) Mean Corpuscular Hemoglobin 30 pg (25-35) Mean Corpuscular Hemoglobin Concent 34 g/dL (31-37) Red Cell Distribution Width 13.6 % (11.5-14.5) Platelet Count 157 x10^3/uL (140-400) Neutrophils (%) (Auto) 88 % (31-73) H Lymphocytes (%) (Auto) 3 % (24-48) L Monocytes (%) (Auto) 9 % (0-9) Eosinophils (%) (Auto) 0 % (0-3) Basophils (%) (Auto) 0 % (0-3) Neutrophils # (Auto) 20.8 x10^3/uL (1.8-7.7) H Lymphocytes # (Auto) 0.6 x10^3/uL (1.0-4.8) L Monocytes # (Auto) 2.1 x10^3/uL (0.0-1.1) H Eosinophils # (Auto) 0.0 x10^3/uL (0.0-0.7) Basophils # (Auto) 0.1 x10^3/uL (0.0-0.2) Segmented Neutrophils % 88 % (35-66) H Band Neutrophils % 5 % (0-9) Lymphocytes % 4 % (24-48) L Monocytes % 3 % (0-10) Platelet Estimate Adequate (ADEQUATE) Sodium Level 140 mmol/L (136-145) Potassium Level 3.7 mmol/L (3.5-5.1) Chloride Level 101 mmol/L (98-107) Carbon Dioxide Level 29 mmol/L (21-32) Anion Gap 10 (6-14) Blood Urea Nitrogen 10 mg/dL (8-26) Creatinine 1.1 mg/dL (0.7-1.3) Estimated GFR (Cockcroft-Gault) 83.0 BUN/Creatinine Ratio 9 (6-20) Glucose Level 94 mg/dL (70-99) Calcium Level 8.9 mg/dL (8.5-10.1) Total Bilirubin 1.3 mg/dL (0.2-1.0) H Aspartate Amino Transferase (AST) 14 U/L (15-37) L Alanine Aminotransferase (ALT) 12 U/L (16-63) L Alkaline Phosphatase 58 U/L (46-116) Total Protein 7.0 g/dL (6.4-8.2) Albumin 3.2 g/dL (3.4-5.0) L Albumin/Globulin Ratio 0.8 (1.0-1.7) L Lactic Acid Level 0.9 mmol/L (0.4-2.0) Laboratory Tests 04/24/19 17:50 Laboratory Tests 04/24/19 17:50 (RIAN DUGAN APRN) EKG EKG [] (RIAN DUGAN APRN) Radiology/Procedures Radiology/Procedures []Heart size is normal. No pericardial effusion. Visualized lung bases are clear. No pleural effusion. Liver, spleen, pancreas, gallbladder and adrenals are unremarkable. Kidneys demonstrate symmetric enhancement. No perinephric inflammation or hydronephrosis. No renal or ureteral calculi are identified. Bladder is decompressed not well evaluated. Prostate is not enlarged. Inflammatory changes are noted in the right lower quadrant with bowel wall thickening involving the cecum and terminal ileum. Appendix is not clearly defined however there is a approximately 2.7 cm air collection at the right pelvic sidewall near the location of the appendix on the prior CT, favored represent contained perforation. Abdominal aorta has a normal course and caliber. Abdominal vasculature is patent. No enlarged abdominal lymph nodes are identified. No suspicious osseous lesions or acute fracture. IMPRESSION: Findings likely of perforated appendicitis with a 2.7 cm air collection at the right pelvic sidewall which is favored represent a contained perforation. There is extensive inflammatory changes in the right lower quadrant. (RIAN DUGAN APRN) Course & Med Decision Making Course & Med Decision Making Pertinent Labs and Imaging studies reviewed. (See chart for details) [Reviewed prior imaging and labs, with leukocytosis and poorly visualized appendix on prior CT abdomen. Discussed repeat imaging with patient, patient states he thinks that would be good, he just wants to make sure it's not his appendix. Discussed with radiology consideration for Oral contrast, will do oral contrast for scan. @ 1950 - Discussed with Dr Simmons, agrees to admission, will do surgery in AM. Will continue IV fluids, NPO, antibiotics tonight. Discussed with patient, patient in agreement with admission without further questions] (RIAN DUGAN APRN) Dragon Disclaimer Dragon Disclaimer This electronic medical record was generated, in whole or in part, using a voice recognition dictation system. (RIAN DUGAN APRN) Departure Departure Impression: Primary Impression: Perforated appendix Disposition: ADMITTED INPATIENT Condition: STABLE Referrals: NO PCP (PCP) RIAN DUGAN APRN Apr 24, 2019 17:28 TONO DANIEL MD Apr 24, 2019 23:28
[2019-04-24 17:40] LABS: BILIRUBIN,URINE SMALL (NEG); CLARITY,URINE CLOUDY; COLOR,URINE AMBER; NITRITE,URINE NEGATIVE (NEG); PH,URINE 5.5; PROTEIN,URINE 100 mg/dL (NEG-TRACE)
[2019-04-24 17:47] LABS: BACTERIA,URINE 0 /HPF (0-FEW); WBC,URINE 0 /HPF (0-4)
[2019-04-24 17:48] LABS: AMORPHOUS SEDIMENT,UR PRESENT /HPF
[2019-04-24] MEDS ORDERED: KETOROLAC 15 MG/ML VIAL. IVP ONE (18:00)
[2019-04-24] MEDS ORDERED: ONDANSETRON PF 4 MG/2 ML VIAL. IV ONE (18:00)
[2019-04-24] MEDS ORDERED: IV NORMAL SALINE 1000ML BAG 1,000 ML IV ONE (18:00)
[2019-04-24 18:03] LABS: BASO # 0.1 x10^3/uL (0.0-0.2); BASO % 0 % (0-3); EOS % 0 % (0-3); HEMATOCRIT 42.9 % (39.0-53.0); HEMOGLOBIN 14.5 g/dL (13.0-17.5); LYMPH # 0.6 x10^3/uL (1.0-4.8); LYMPH % 3 % (24-48); MEAN CORPUSCULAR HEMOGLOBIN 30 pg (25-35); MEAN CORPUSCULAR HGB CONC 34 g/dL (31-37); MEAN CORPUSCULAR VOLUME 90 fL (79-100); MONO # 2.1 x10^3/uL (0.0-1.1); MONO % 9 % (0-9); NEUT # 20.8 x10^3/uL (1.8-7.7); NEUT % 88 % (31-73); PLATELET COUNT 157 x10^3/uL (140-400); RED BLOOD COUNT 4.79 x10^6/uL (4.30-5.70); RED CELL DISTRIBUTION WIDTH 13.6 % (11.5-14.5); WHITE BLOOD COUNT 23.6 x10^3/uL (4.0-11.0)
[2019-04-24 18:13] LABS: CALCIUM 8.9 mg/dL (8.5-10.1); CREATININE 1.1 mg/dL (0.7-1.3); POTASSIUM 3.7 mmol/L (3.5-5.1)
[2019-04-24] MEDS ORDERED: IOHEXOL 240 MG/ML 50ML VIAL. PO ONE (18:15)
[2019-04-24] MEDS ORDERED: CONTRAST GIVEN. MC PRN (18:15)
[2019-04-24] MEDS ORDERED: IOHEXOL 300 MG/ML 100ML VIAL. IV ONE (18:15)
[2019-04-24 18:19] LABS: ALBUMIN 3.2 g/dL (3.4-5.0); ALBUMIN/GLOBULIN RATIO 0.8 (1.0-1.7); TOTAL BILIRUBIN 1.3 mg/dL (0.2-1.0)
[2019-04-24 18:30] LABS: % BANDS 5 % (0-9); % LYMPHS 4 % (24-48); % MONOS 3 % (0-10); % SEGS 88 % (35-66); PLT ESTIMATE ADEQUATE (ADEQUATE)
--- NOTE | 2019-04-24 19:37 | RAD ---
Exam: CT abdomen and pelvis with contrast INDICATION: Right lower quadrant pain TECHNIQUE: Sequential axial images through the abdomen and pelvis obtained following the administration of 75 mL of Omni 300 IV contrast. Sagittal and coronal reformatted images were reconstructed from the axial data and reviewed. Comparisons: 04/22/2019 FINDINGS: Heart size is normal. No pericardial effusion. Visualized lung bases are clear. No pleural effusion. Liver, spleen, pancreas, gallbladder and adrenals are unremarkable. Kidneys demonstrate symmetric enhancement. No perinephric inflammation or hydronephrosis. No renal or ureteral calculi are identified. Bladder is decompressed not well evaluated. Prostate is not enlarged. Inflammatory changes are noted in the right lower quadrant with bowel wall thickening involving the cecum and terminal ileum. Appendix is not clearly defined however there is a approximately 2.7 cm air collection at the right pelvic sidewall near the location of the appendix on the prior CT, favored represent contained perforation. Abdominal aorta has a normal course and caliber. Abdominal vasculature is patent. No enlarged abdominal lymph nodes are identified. No suspicious osseous lesions or acute fracture. IMPRESSION: Findings likely of perforated appendicitis with a 2.7 cm air collection at the right pelvic sidewall which is favored represent a contained perforation. There is extensive inflammatory changes in the right lower quadrant. Exposure: One or more of the following in the visualized dose reduction techniques were utilized for this examination: 1. Automated exposure control 2. Adjustment of the MA and/or KV according to patient size 3. Use of iterative of reconstructive technique FOR INTERNAL CODING PURPOSES Critical result: Findings discussed with RIAN DUGAN at 04/24/2019 7:31 PM. RESULT CODE: (C) Electronically signed by: Brian Wong MD (04/24/2019 7:34 PM) [id number]
[2019-04-24] MEDS ORDERED: PIPERACILLIN/TAZOBACTAM 3.375 GM in IV NORMAL SALINE 50ML 50 ML IV ONE (19:45)
[2019-04-24] MEDS ORDERED: ONDANSETRON PF 4 MG/2 ML VIAL. IV PRN (20:00)
[2019-04-24 20:45] VITALS: BP 103/45
[2019-04-24] MEDS: MORPHINE SULFATE 2 MG/ML VIAL. IV PRN (21:13)
--- NOTE | 2019-04-24 23:30 | NUR ---
ADMIT NOTE The patient, ELTON DENIS, 23 y/o, M admitted by DECLAN MINA MD, was given written information regarding hospital policies, unit procedures and contact persons. Patient afebrile, heart rate elevated with all other vitals stable and moderate c/o pain upon admit to floor. Patient's plan of care discussed, admission assessment complete, allergies/home medications verified and admit packet reviewed. Valuables were checked and left in room with patient . Patient now resting in bed, call light within reach and will continue to monitor.
[2019-04-24] MEDS: IV NORMAL SALINE 1000ML BAG 1,000 ML IV SCH (23:40)
[2019-04-24] MEDS ORDERED: KETOROLAC 15 MG/ML VIAL. IVP PRN (23:45)
[2019-04-24 23:49] VITALS: BP 115/71
[2019-04-25] VITALS (11 sets, daily range): BP systolic 93–111; BP diastolic 60–82
[2019-04-25] MEDS: PIPERACILLIN/TAZOBACTAM 3.375 GM in IV NORMAL SALINE 50ML 50 ML IV SCH ×4 (00:04→17:01)
[2019-04-25] MEDS: MORPHINE SULFATE 2 MG/ML VIAL. IV PRN ×2 (00:06→06:34)
[2019-04-25 03:51] LABS: BASO % 0 % (0-3); EOS % 0 % (0-3); HEMATOCRIT 39.9 % (39.0-53.0); HEMOGLOBIN 13.1 g/dL (13.0-17.5); LYMPH # 1.3 x10^3/uL (1.0-4.8); LYMPH % 6 % (24-48); MEAN CORPUSCULAR HEMOGLOBIN 30 pg (25-35); MEAN CORPUSCULAR HGB CONC 33 g/dL (31-37); MEAN CORPUSCULAR VOLUME 92 fL (79-100); MONO % 9 % (0-9); NEUT % 85 % (31-73); PLATELET COUNT 149 x10^3/uL (140-400); RED BLOOD COUNT 4.33 x10^6/uL (4.30-5.70); RED CELL DISTRIBUTION WIDTH 13.3 % (11.5-14.5); WHITE BLOOD COUNT 21.4 x10^3/uL (4.0-11.0)
[2019-04-25] MEDS: IV NORMAL SALINE 1000ML BAG 1,000 ML IV SCH (03:56)
[2019-04-25 04:02] LABS: CALCIUM 8.4 mg/dL (8.5-10.1); CREATININE 1.2 mg/dL (0.7-1.3); POTASSIUM 3.9 mmol/L (3.5-5.1)
[2019-04-25] MEDS ORDERED: ROCURONIUM 50 MG/5 ML VIAL. ONE (06:44)
[2019-04-25] MEDS ORDERED: fentaNYL PF VIAL 100 MCG/2 ML VIAL ONE ×2 (06:44→08:47)
[2019-04-25] MEDS ORDERED: ONDANSETRON PF 4 MG/2 ML VIAL. ONE (06:48)
[2019-04-25] MEDS ORDERED: SEVOFLURANE 61 TO 120 MINUTES. IH ONE ×2 (06:48→08:19)
[2019-04-25] MEDS ORDERED: LIDOCAINE 2% PF 5 ML VIAL. ONE (06:48)
[2019-04-25] MEDS ORDERED: PROPOFOL 20 ML IV ONE (06:48)
[2019-04-25] MEDS ORDERED: DEXAMETHASONE SOD PHOS 4 MG/ML VIAL ONE (06:48)
[2019-04-25] MEDS ORDERED: KETOROLAC 30 MG/ML VIAL. ONE (06:49)
[2019-04-25] MEDS ORDERED: MIDAZOLAM HCL/PF 2 MG/2 ML VIAL. ONE (06:52)
[2019-04-25] MEDS ORDERED: IV RINGERS,LACTATED 1000ML 1,000 ML IV SCH (06:58)
[2019-04-25] MEDS ORDERED: HYDROmorphone 2 MG/ML VIAL IV PRN (07:00)
[2019-04-25] MEDS ORDERED: MORPHINE SULFATE 2 MG/ML VIAL. IV PRN ×2 (07:00→08:45)
[2019-04-25] MEDS ORDERED: fentaNYL PF VIAL 100 MCG/2 ML VIAL IV PRN ×2 (07:00)
[2019-04-25] MEDS ORDERED: PROCHLORPERAZINE 10 MG/2 ML VIAL. IV PRN (07:00)
[2019-04-25] MEDS ORDERED: ONDANSETRON PF 4 MG/2 ML VIAL. IV PRN (07:00)
[2019-04-25] MEDS ORDERED: LIDOCAINE 1% PF 2 ML VIAL. ID PRN (07:00)
[2019-04-25] MEDS ORDERED: BUPIVACAINE-EPI 0.25%-1:200000 MPF 30 ML VIAL. INJ ONE (07:15)
--- NOTE | 2019-04-25 07:27 | PDOC1 ---
History and Physical Date of Admission Date of Admission DATE: 04/24/2019 TIME: 2200 Identification/Chief Complaint Chief Complaint Right lower quadrant abdominal pain Source Source: Patient History of Present Illness History of Present Illness 23-year-old male who's had right lower quadrant abdominal pain approximately 1 week was seen in the emergency department earlier this week and was released to home he returns with continued pain worsening and low-grade fever denies any nausea or vomiting. CT scan showing signs consistent with acute appendicitis possible rupture with some free fluid no abscess Past Medical History Cardiovascular: No pertinent hx Pulmonary: No pertinent hx GI: No pertinent hx Heme/Onc: No pertinent hx Hepatobiliary: No pertinent hx Psych: No pertinent hx Rheumatologic: No pertinent hx Infectious disease: No pertinent hx ENT: No pertinent hx Renal/: No pertinent hx Endocrine: No pertinent hx Dermatology: No pertinent hx Past Surgical History Past Surgical History: No pertinent history Family History Family History: No Significant Social History Smoke: No ALCOHOL: rare Drugs: None Current Medications Current Medications Current Medications Ketorolac Tromethamine (Toradol 15mg Vial) 15 mg 1X ONCE IVP Last administered on 04/24/19at 18:06; Start 04/24/19 at 18:00; Stop 04/24/19 at 18:01; Status DC Ondansetron HCl (Zofran) 4 mg 1X ONCE IV Last administered on 04/24/19at 18:06 ; Start 04/24/19 at 18:00; Stop 04/24/19 at 18:01; Status DC Sodium Chloride 1,000 ml @ 1,000 mls/hr 1X ONCE IV Last administered on 04/24/19at 18:05; Start 04/24/19 at 18:00; Stop 04/24/19 at 18:59; Status DC Iohexol (Omnipaque 240 Mg/ml) 50 ml 1X ONCE PO Last administered on 04/24/19at 19:00; Start 04/24/19 at 18:15; Stop 04/24/19 at 18:16; Status DC Iohexol (Omnipaque 300 Mg/ml) 75 ml 1X ONCE IV Last administered on 04/24/19at 19:00; Start 04/24/19 at 18:15; Stop 04/24/19 at 18:16; Status DC Info (CONTRAST GIVEN -- Rx MONITORING) 1 each PRN DAILY PRN MC SEE COMMENTS; Start 04/24/19 at 18:15; Stop 04/26/19 at 18:14 Piperacillin Sod/ Tazobactam Sod 3.375 gm/Sodium Chloride 50 ml @ 100 mls/hr 1X ONCE IV Last administered on 04/24/19at 20:06; Start 04/24/19 at 19:45; Stop 04/24/19 at 20:14; Status DC Ondansetron HCl (Zofran) 4 mg PRN Q8HRS PRN IV NAUSEA/VOMITING; Start 04/24/19 at 20:00; Stop 04/25/19 at 19:59 Morphine Sulfate (Morphine Sulfate) 2 mg PRN Q2HR PRN IV PAIN Last administered on 04/25/19at 06:34; Start 04/24/19 at 20:00; Stop 04/25/19 at 19:59 Sodium Chloride 1,000 ml @ 125 mls/hr Q8H IV Last administered on 04/24/19at 23:40; Start 04/24/19 at 19:56; Stop 04/25/19 at 19:55 Piperacillin Sod/ Tazobactam Sod 3.375 gm/Sodium Chloride 50 ml @ 100 mls/hr Q6HRS IV Last administered on 04/25/19at 06:30; Start 04/25/19 at 00:00 Ketorolac Tromethamine (Toradol 15mg Vial) 15 mg PRN Q6HRS PRN IVP PAIN; Start 04/24/19 at 23:45; Stop 04/29/19 at 23:44 Rocuronium [place] (Zemuron) 50 mg STK-MED ONCE .ROUTE ; Start 04/25/19 at 06:44; Stop 04/25/19 at 06:45; Status DC Fentanyl Citrate (Fentanyl 2ml Vial) 100 mcg STK-MED ONCE .ROUTE ; Start 04/25/19 at 06:44; Stop 04/25/19 at 06:45; Status DC Sevoflurane (Ultane) 60 ml STK-MED ONCE IH ; Start 04/25/19 at 06:48; Stop 04/25/19 at 06:48; Status DC Ondansetron HCl (Zofran) 4 mg STK-MED ONCE .ROUTE ; Start 04/25/19 at 06:48; Stop 04/25/19 at 06:48; Status DC Dexamethasone Sodium Phosphate (Decadron) 4 mg STK-MED ONCE .ROUTE ; Start 1 06/25/18 at 06:48; Stop 04/25/19 at 06:48; Status DC Lidocaine HCl (Lidocaine Pf 2% Vial) 5 ml STK-MED ONCE .ROUTE ; Start 04/25/19 at 06:48; Stop 04/25/19 at 06:49; Status DC Propofol 20 ml @ As Directed STK-MED ONCE IV ; Start 04/25/19 at 06:48; Stop at 06:49; Status DC Ketorolac Tromethamine (Toradol 30mg Vial) 30 mg STK-MED ONCE .ROUTE ; Start 04/25/19 at 06:49; Stop 04/25/19 at 06:49; Status DC Midazolam HCl (Versed) 2 mg STK-MED ONCE .ROUTE ; Start 04/25/19 at 06:52; Stop 04/25/19 at 06:52; Status DC Ondansetron HCl (Zofran) 4 mg PRN Q6HRS PRN IV NAUSEA/VOMITING; Start 04/25/19 at 07:00; Stop 04/26/19 at 06:59 Fentanyl Citrate (Fentanyl 2ml Vial) 25 mcg PRN Q5MIN PRN IV MILD PAIN 1-3; Start 04/25/19 at 07:00; Stop 04/26/19 at 06:59 Fentanyl Citrate (Fentanyl 2ml Vial) 50 mcg PRN Q5MIN PRN IV MODERATE TO SEVERE PAIN; Start 04/25/19 at 07:00; Stop 04/26/19 at 06:59 Morphine Sulfate (Morphine Sulfate) 1 mg PRN Q10MIN PRN IV SEVERE PAIN 7-10; Start 04/25/19 at 07:00; Stop 04/26/19 at 06:59 Ringer's Solution 1,000 ml @ 30 mls/hr Q24H IV ; Start 04/25/19 at 06:58; Stop 04/25/19 at 18:57 Lidocaine HCl (Xylocaine-Mpf 1% 2ml Vial) 2 ml 1X PRN PRN ID IV START; Start 04/25/19 at 07:00; Stop 04/26/19 at 06:59 Hydromorphone HCl (Dilaudid) 0.5 mg PRN Q10MIN PRN IV SEV PAIN, Second choice; Start 04/25/19 at 07:00; Stop 04/26/19 at 06:59 Prochlorperazine Edisylate (Compazine) 5 mg PACU PRN PRN IV NAUSEA, MRX1; Start 04/25/19 at 07:00; Stop 04/26/19 at 06:59 Bupivacaine HCl/ Epinephrine Bitart (Sensorcaine-Epi 0.25%-1:[id number] Mpf) 30 ml 1X ONCE INJ ; Start 04/25/19 at 07:15; Stop 04/25/19 at 07:16; Status DC Active Scripts Active Dicyclomine Hcl 20 Mg Tablet 1 Tab PO TID PRN Zofran (Ondansetron Hcl) 4 Mg Tablet 4 Mg PO PRN TID PRN nausea/vomiting Allergies Allergies: Coded Allergies: No Known Drug Allergies (Unverified , 10/22/18) ROS Gastrointestinal: Yes Abdominal Pain Physical Exam General: Alert, Oriented X3, Cooperative, mild distress HEENT: Atraumatic, PERRLA, EOMI Lungs: Clear to auscultation, Normal air movement Heart: RRR, no murmurs Abdomen: Normal bowel sounds, Soft, Other (tender to palpation right lower quadrant) Extremities: No edema Skin: No significant lesion Neuro: Normal speech Psych/Mental Status: Mental status NL Vitals Vitals Vital Signs Date Time Temp Pulse Resp B/P (MAP) Pulse Ox O2 Delivery O2 Flow Rate FiO2 04/25/19 07:05 16 Room Air 04/25/19 03:46 98.5 79 95/60 (72) 99 98.5 Labs Labs Laboratory Tests Test 04/24/19 16:25 04/24/19 17:50 04/24/19 18:50 04/25/19 03:15 Urine Collection Type Unknown Urine Color Janiya Urine Clarity Cloudy Urine pH 5.5 Urine Specific [place] >=1.030 Urine Protein 100 mg/dL (NEG-TRACE) Urine Glucose (UA) Negative mg/dL (NEG) Urine Ketones (Stick) 15 mg/dL (NEG) Urine Blood Large (NEG) Urine Nitrite Negative (NEG) Urine Bilirubin Small (NEG) Urine Urobilinogen Dipstick 1.0 mg/dL (0.2 mg/dL) Urine Leukocyte Esterase Negative (NEG) Urine RBC 3-5 /HPF (0-2) Urine WBC 0 /HPF (0-4) Urine Amorphous Sediment Present /HPF Urine Bacteria 0 /HPF (0-FEW) Urine Mucus Mod /LPF White Blood Count 23.6 x10^3/uL (4.0-11.0) 21.4 x10^3/uL (4.0-11.0) Red Blood Count 4.79 x10^6/uL (4.30-5.70) 4.33 x10^6/uL (4.30-5.70) Hemoglobin 14.5 g/dL (13.0-17.5) 13.1 g/dL (13.0-17.5) Hematocrit 42.9 % (39.0-53.0) 39.9 % (39.0-53.0) Mean Corpuscular Volume 90 fL (79-100) 92 fL (79-100) Mean Corpuscular Hemoglobin 30 pg (25-35) 30 pg (25-35) Mean Corpuscular Hemoglobin Concent 34 g/dL (31-37) 33 g/dL (31-37) Red Cell Distribution Width 13.6 % (11.5-14.5) 13.3 % (11.5-14.5) Platelet Count 157 x10^3/uL (140-400) 149 x10^3/uL (140-400) Neutrophils (%) (Auto) 88 % (31-73) 85 % (31-73) Lymphocytes (%) (Auto) 3 % (24-48) 6 % (24-48) Monocytes (%) (Auto) 9 % (0-9) 9 % (0-9) Eosinophils (%) (Auto) 0 % (0-3) 0 % (0-3) Basophils (%) (Auto) 0 % (0-3) 0 % (0-3) Neutrophils # (Auto) 20.8 x10^3/uL (1.8-7.7) 18.0 x10^3/uL (1.8-7.7) Lymphocytes # (Auto) 0.6 x10^3/uL (1.0-4.8) 1.3 x10^3/uL (1.0-4.8) Monocytes # (Auto) 2.1 x10^3/uL (0.0-1.1) 2.0 x10^3/uL (0.0-1.1) Eosinophils # (Auto) 0.0 x10^3/uL (0.0-0.7) 0.0 x10^3/uL (0.0-0.7) Basophils # (Auto) 0.1 x10^3/uL (0.0-0.2) 0.0 x10^3/uL (0.0-0.2) Segmented Neutrophils % 88 % (35-66) Band Neutrophils % 5 % (0-9) Lymphocytes % 4 % (24-48) Monocytes % 3 % (0-10) Platelet Estimate Adequate (ADEQUATE) Sodium Level 140 mmol/L (136-145) 146 mmol/L (136-145) Potassium Level 3.7 mmol/L (3.5-5.1) 3.9 mmol/L (3.5-5.1) Chloride Level 101 mmol/L (98-107) 108 mmol/L (98-107) Carbon Dioxide Level 29 mmol/L (21-32) 26 mmol/L (21-32) Anion Gap 10 (6-14) 12 (6-14) Blood Urea Nitrogen 10 mg/dL (8-26) 11 mg/dL (8-26) Creatinine 1.1 mg/dL (0.7-1.3) 1.2 mg/dL (0.7-1.3) Estimated GFR (Cockcroft-Gault) 83.0 75.0 BUN/Creatinine Ratio 9 (6-20) Glucose Level 94 mg/dL (70-99) 79 mg/dL (70-99) Calcium Level 8.9 mg/dL (8.5-10.1) 8.4 mg/dL (8.5-10.1) Total Bilirubin 1.3 mg/dL (0.2-1.0) Aspartate Amino Transf (AST/SGOT) 14 U/L (15-37) Alanine Aminotransferase (ALT/SGPT) 12 U/L (16-63) Alkaline Phosphatase 58 U/L (46-116) Total Protein 7.0 g/dL (6.4-8.2) Albumin 3.2 g/dL (3.4-5.0) Albumin/Globulin Ratio 0.8 (1.0-1.7) Lactic Acid Level 0.9 mmol/L (0.4-2.0) 2.9 mmol/L (0.4-2.0) Laboratory Tests Test 04/24/19 16:25 04/24/19 17:50 04/24/19 18:50 04/25/19 03:15 Urine Collection Type Unknown Urine Color Janiya Urine Clarity Cloudy Urine pH 5.5 Urine Specific [place] >=1.030 Urine Protein 100 mg/dL (NEG-TRACE) Urine Glucose (UA) Negative mg/dL (NEG) Urine Ketones (Stick) 15 mg/dL (NEG) Urine Blood Large (NEG) Urine Nitrite Negative (NEG) Urine Bilirubin Small (NEG) Urine Urobilinogen Dipstick 1.0 mg/dL (0.2 mg/dL) Urine Leukocyte Esterase Negative (NEG) Urine RBC 3-5 /HPF (0-2) Urine WBC 0 /HPF (0-4) Urine Amorphous Sediment Present /HPF Urine Bacteria 0 /HPF (0-FEW) Urine Mucus Mod /LPF White Blood Count 23.6 x10^3/uL (4.0-11.0) 21.4 x10^3/uL (4.0-11.0) Red Blood Count 4.79 x10^6/uL (4.30-5.70) 4.33 x10^6/uL (4.30-5.70) Hemoglobin 14.5 g/dL (13.0-17.5) 13.1 g/dL (13.0-17.5) Hematocrit 42.9 % (39.0-53.0) 39.9 % (39.0-53.0) Mean Corpuscular Volume 90 fL (79-100) 92 fL (79-100) Mean Corpuscular Hemoglobin 30 pg (25-35) 30 pg (25-35) Mean Corpuscular Hemoglobin Concent 34 g/dL (31-37) 33 g/dL (31-37) Red Cell Distribution Width 13.6 % (11.5-14.5) 13.3 % (11.5-14.5) Platelet Count 157 x10^3/uL (140-400) 149 x10^3/uL (140-400) Neutrophils (%) (Auto) 88 % (31-73) 85 % (31-73) Lymphocytes (%) (Auto) 3 % (24-48) 6 % (24-48) Monocytes (%) (Auto) 9 % (0-9) 9 % (0-9) Eosinophils (%) (Auto) 0 % (0-3) 0 % (0-3) Basophils (%) (Auto) 0 % (0-3) 0 % (0-3) Neutrophils # (Auto) 20.8 x10^3/uL (1.8-7.7) 18.0 x10^3/uL (1.8-7.7) Lymphocytes # (Auto) 0.6 x10^3/uL (1.0-4.8) 1.3 x10^3/uL (1.0-4.8) Monocytes # (Auto) 2.1 x10^3/uL (0.0-1.1) 2.0 x10^3/uL (0.0-1.1) Eosinophils # (Auto) 0.0 x10^3/uL (0.0-0.7) 0.0 x10^3/uL (0.0-0.7) Basophils # (Auto) 0.1 x10^3/uL (0.0-0.2) 0.0 x10^3/uL (0.0-0.2) Segmented Neutrophils % 88 % (35-66) Band Neutrophils % 5 % (0-9) Lymphocytes % 4 % (24-48) Monocytes % 3 % (0-10) Platelet Estimate Adequate (ADEQUATE) Sodium Level 140 mmol/L (136-145) 146 mmol/L (136-145) Potassium Level 3.7 mmol/L (3.5-5.1) 3.9 mmol/L (3.5-5.1) Chloride Level 101 mmol/L (98-107) 108 mmol/L (98-107) Carbon Dioxide Level 29 mmol/L (21-32) 26 mmol/L (21-32) Anion Gap 10 (6-14) 12 (6-14) Blood Urea Nitrogen 10 mg/dL (8-26) 11 mg/dL (8-26) Creatinine 1.1 mg/dL (0.7-1.3) 1.2 mg/dL (0.7-1.3) Estimated GFR (Cockcroft-Gault) 83.0 75.0 BUN/Creatinine Ratio 9 (6-20) Glucose Level 94 mg/dL (70-99) 79 mg/dL (70-99) Calcium Level 8.9 mg/dL (8.5-10.1) 8.4 mg/dL (8.5-10.1) Total Bilirubin 1.3 mg/dL (0.2-1.0) Aspartate Amino Transf (AST/SGOT) 14 U/L (15-37) Alanine Aminotransferase (ALT/SGPT) 12 U/L (16-63) Alkaline Phosphatase 58 U/L (46-116) Total Protein 7.0 g/dL (6.4-8.2) Albumin 3.2 g/dL (3.4-5.0) Albumin/Globulin Ratio 0.8 (1.0-1.7) Lactic Acid Level 0.9 mmol/L (0.4-2.0) 2.9 mmol/L (0.4-2.0) Images Images In history of present illness VTE Prophylaxis Ordered VTE Prophylaxis Devices: Yes VTE Pharmacological Prophylaxi: Contraindicated Assessment/Plan Assessment/Plan Acute appendicitis plan lap scopic appendectomy possible open appendectomy DECLAN MINA MD Apr 25, 2019 07:27
[2019-04-25] MEDS ORDERED: SUCCINYLCHOLINE 200 MG/10 ML VIAL. ONE (07:34)
[2019-04-25] MEDS ORDERED: SURGICEL HEMOSTAT 4X8 EACH. ONE (07:59)
[2019-04-25] MEDS ORDERED: GLYCOPYRROLATE 1 MG/5 ML VIAL. ONE (08:13)
[2019-04-25] MEDS ORDERED: NEOSTIGMINE METHYLSULFATE 5 MG/5 ML SYRINGE. ONE (08:13)
--- NOTE | 2019-04-25 08:36 | PDOC4 ---
Operative Note Operative Note Date: 04/25/2019 Preoperative diagnosis: Acute appendicitis Postoperative diagnosis: Acute appendicitis Procedure: Laparoscopic appendectomy Surgeon: Troy Specimen: Appendix Dictation: Patient is 23-year-old male admitted to the hospital for right lower quadrant abdominal pain and a CT scan showing signs consistent with acute appendicitis. Procedure of laparoscopic appendectomy was explained to the patient detail, benefits were also discussed in detail including bleeding infection injury to intra-abdominal contents possibly necessitating further or open operations alternatives to this procedure also discussed with the patient who seemed to understand and gave both verbal and written consent had procedure performed patient was taken to the operative [place] supine position general anesthesia was initiated once patient was sleep and intubated his abdomen was prepped and draped usual sterile fashion using ChloraPrep. An area just above the umbilicus was injected with quarter percent Marcaine with epinephrine incision was made [place] blade scalpel varies needle was placed within the abdomen creating pneumoperitoneum once this was complete a 12 mm port was placed and a 5 mill meter camera was placed within the abdomen was noted that the right lower quadrant had some free fluid and the cecum was somewhat tethered to the right pelvis. Is also noted that on placement of the 12 mm port there was a small port injury to the mesentery with a little bit of bleeding the bowel close to this was without any injury. A 5 mm port was placed in the pelvis and a small piece of Surgicel was placed in the mesenteric injury to control bleeding this was done without any difficulties and bleeding stopped. A 5 ml port was placed in the right upper quadrant. The appendix was visualized along the right gutter with free fluid consistent with a perforation there was a small fecalith outside of the appendix this fluid was suctioned clear the base of the appendix was visualized going into the cecum a window was propagated meso appendix through the base an Endo TALON stapler was used to staple and transect the base the appendix. Second load was used to staple and transect the mesoappendix and the appendix was placed in Endo Catch bag along with the fecalith. Right lower quadrant was irrigated and suctioned dry hemostasis deemed appropriate the pelvis also was irrigated and suctioned dry. The pneumoperitoneum was reduced all ports removed fascial defect of the umbilicus closed [id number] 0 Vicryl suture and the skin was approximated all port sites for septic and a Monocryl Mastisol Steri-Strips and island dressings were applied. Patient was awakened and bated operating room taken to recovery in stable condition all sponge instrument needle counts listed as correct estimated blood loss 10 mL DECLAN MINA MD Apr 25, 2019 08:36
[2019-04-25] MEDS ORDERED: oxyCODONE/APAP 5/325 1 TAB TABLET PO PRN (08:45)
[2019-04-25] MEDS ORDERED: 0.9 % SODIUM CHLORIDE 10 ML DISP.SYRIN. IV PRN (08:45)
--- NOTE | 2019-04-25 09:12 | NUR ---
Patient has positive sepsis screen, notified Dr. Simmons, no new orders received. Paged ICU charge nurse.
[2019-04-25] MEDS: IV DEXTROSE 5%-LACT RINGERS 1,000 ML IV SCH (10:25)
[2019-04-25] MEDS: ONDANSETRON PF 4 MG/2 ML VIAL. IV PRN ×2 (10:33→16:58)
[2019-04-25] MEDS: KETOROLAC 15 MG/ML VIAL. IV SCH ×2 (10:54→16:56)
--- NOTE | 2019-04-25 11:02 | NUR ---
SS following for discharge planning. SS reviewed pt chart. Pt is self pay pt. [facility] following self pay status. Pt is from home and is currently on room air. SS will continue to follow for discharge planning.
[2019-04-25] MEDS ORDERED: PIPERACILLIN/TAZOBACTAM 3.375 GM in IV NORMAL SALINE 50ML 50 ML IV SCH (12:00)
[2019-04-25] MEDS: PHENAZOPYRIDINE 200 MG TABLET. PO PRN (13:52)
[2019-04-25] MEDS: oxyCODONE/APAP 5/325 1 TAB TABLET PO PRN (13:52)
[2019-04-25] MEDS: LACTOBACILLUS RHAMNOSUS GG 1 CAPSULE. PO SCH (21:00)
[2019-04-26] MEDS: PIPERACILLIN/TAZOBACTAM 3.375 GM in IV NORMAL SALINE 50ML 50 ML IV SCH ×3 (01:15→12:00)
[2019-04-26] MEDS: KETOROLAC 15 MG/ML VIAL. IV SCH ×3 (01:30→12:00)
[2019-04-26 03:40] VITALS: BP 90/50
[2019-04-26] MEDS: IV DEXTROSE 5%-LACT RINGERS 1,000 ML IV SCH ×2 (05:46→11:16)
[2019-04-26 05:53] LABS: BASO % 0 % (0-3); EOS % 0 % (0-3); HEMATOCRIT 34.1 % (39.0-53.0); HEMOGLOBIN 11.4 g/dL (13.0-17.5); LYMPH # 0.6 x10^3/uL (1.0-4.8); LYMPH % 3 % (24-48); MEAN CORPUSCULAR HEMOGLOBIN 30 pg (25-35); MEAN CORPUSCULAR HGB CONC 34 g/dL (31-37); MEAN CORPUSCULAR VOLUME 91 fL (79-100); MONO # 0.9 x10^3/uL (0.0-1.1); MONO % 4 % (0-9); NEUT # 19.4 x10^3/uL (1.8-7.7); NEUT % 93 % (31-73); PLATELET COUNT 175 x10^3/uL (140-400); RED BLOOD COUNT 3.76 x10^6/uL (4.30-5.70); RED CELL DISTRIBUTION WIDTH 13.5 % (11.5-14.5); WHITE BLOOD COUNT 20.9 x10^3/uL (4.0-11.0)
[2019-04-26] MEDS: PHENAZOPYRIDINE 200 MG TABLET. PO PRN (06:02)
[2019-04-26 07:00] VITALS: BP 104/68
[2019-04-26] MEDS: LACTOBACILLUS RHAMNOSUS GG 1 CAPSULE. PO SCH (08:00)
[2019-04-26] MEDS: oxyCODONE/APAP 5/325 1 TAB TABLET PO PRN (10:14)
--- NOTE | 2019-04-26 11:09 | DISCH ---
DISCHARGE INSTRUCTIONS Condition on Discharge Condition on Discharge: Stable Activity After Discharge Activity Instructions for Disc: Activity as tolerated, Avoid exertion Lifting Instructions after Dis: No heavy lifting Driving Instructions after Dis: Do not drive (2-3 days) Diet after Discharge Diet after Discharge: Regular Wound Incision Care Other wound/incision instructi: may shower tomorrow Contacting the after DC Call your doctor for: Follow-Up Follow up with: Dr Simmons next week ANGIE GIANG MD Apr 26, 2019 11:09
--- NOTE | 2019-04-26 11:10 | PDOC ---
Provider Note Provider Note [place] for Dr Simmons POD 1 perfed appy encourage Gurjit to stay another 24 h for IV abx he is concerned about cost vss afebrile benign exam home on augmentin f/u with ANGIE Kirk MD Apr 26, 2019 11:10
--- NOTE | 2019-04-26 13:43 | NUR ---
Discharge Note: ELTON DENIS [address] Discharge instructions and discharge home medications reviewed with Patient and a copy given. All questions have been answered and understanding verbalized. The following instructions and handouts were given: Diet, activity, medication list and follow up instructions provided to patient. Discontinued lines and drains: Peripheral IV discontinued and catheter intact. Patient discharged to Home or Self Care with Self via Ambulated
--- NOTE | 2019-04-28 23:06 | PATHOLOGY ---
[facility] Accession Number: [id number] . 01 Material submitted: . appendix - APPENDIX . 01 Clinical history: . None provided. . 02 Diagnosis: "Appendix", appendectomy: - Acute suppurative appendicitis. (CLW:yehuda; 04/28/2019) QMS 04/28/2019 1325 Local . 02 Electronically signed: . Precious Titus MD, Pathologist NPI- [id number] . 01 Gross description: . Received in formalin labeled "Gurjit Ellis, appendix" is an appendectomy specimen measuring 5.5 cm in length and 1.0 cm in diameter. The proximal margin is closed with a staple line. There is an attached portion of mesoappendix measuring 3.5 x 1.1 x 1.1 cm. The serosa is pink-red and hemorrhagic with webster-white purulent exudate. There is a full-thickness defect in the mid appendix measuring 1.1 x 0.5 cm, which is surrounded by purulent exudate. The defect is located 3.3 cm from the proximal margin. The specimen is sectioned to reveal a luminal diameter ranging from 0.3-0.5 cm, and no fecaliths present. Labor Relations Manager sections are submitted in cassettes as follows: A1 proximal margin, en face A2 one half of the distal tip A3 financial representative cross-section of defect area ([facility] [place]; 04/27/2019) SY/[facility] 04/27/2019 0951 Local . 02 Pathologist provided ICD-10: K35.80 . 02 CPT . 945425 Specimen Comment: A courtesy copy of this report has been sent to [phone], [phone] Specimen Comment: [id number] Specimen Comment: Report sent to / DR DUGAN Performed at: 01 [facility] [address], [place], [place] [id number] MD Chester Caro MD Phone: [phone] Performed at: 02 [facility] [address], [place] [id number] MD Jonathan Salcedo MD Phone: [phone]
== END 2019-04-26 13:45 | disposition home or self-care (01) | DRG 339 ==
LOC: ER 16:14 → 4 NORTH 19:50
PROVIDERS: ADMIT Surgery; ATTEND Surgery
PROC: 0DTJ4ZZ Resection of Appendix, Percutaneous Endoscopic Approach (ICD-10-PCS; principal; 2019-04-25 07:30)
DX: K35.32 Acute appendicitis with perforation, localized peritonitis, and gangrene, without abscess (principal); S36.899A Unspecified injury of other intra-abdominal organs, initial encounter; F12.90 Cannabis use, unspecified, uncomplicated
CPT/HCPCS: 36415; 74177; 80048; 80053; 81001; 83605; 85007; 85025; 88304; 96361; 96365; 96375; A7015; J0330; J1100; J1885; J2001; J2250; J2270; J2405; J2543; J2704; J2710; J3010; J3490; J7030; J7120; Q9966; Q9967; 99285-25; G0378

== ENCOUNTER 2019-08-29 17:38 | Emergency (ER) | payer SELFPAY ==
[~2019-08-29] VITALS: Ht 175.3 cm; Wt 59.0 kg
[2019-08-29 17:45] VITALS: BP 127/72
[2019-08-29] MEDS ORDERED: ONDA4TAB12 PO (18:10)
--- NOTE | 2019-08-29 18:11 | PHYS DOC ---
Past Medical History Past Medical History: No Pertinent History Past Surgical History: No Surgical History Smoking Status: Never Smoker Alcohol Use: None Drug Use: Marijuana Adult General Chief Complaint Chief Complaint: NAUSEA/VOMITING/DIARRHA HPI HPI Patient is a 24 year old male who presents to the ED today complaining of one episode of vomiting that occurred while working at [employer]. Patient was sent home to get a note for work and he is also requesting a prescription for Zofran. Patient denies any abdominal pain. Review of Systems Review of Systems Constitutional: Denies fever or chills [] Eyes: Denies change in visual acuity, redness, or eye pain [] HENT: Denies nasal congestion or sore throat [] Respiratory: Denies cough or shortness of breath [] Cardiovascular: No additional information not addressed in HPI [] GI: Reports nausea. Denies abdominal pain, bloody stools or diarrhea [] : Denies dysuria or hematuria [] Musculoskeletal: Denies back pain or joint pain [] Integument: Denies rash or skin lesions [] Neurologic: Denies headache, focal weakness or sensory changes All other systems were reviewed and found to be within normal limits, except as documented in this note. Allergies Allergies Allergies Coded Allergies Type Severity Reaction Last Updated Verified No Known Drug Allergies 10/22/18 No Physical Exam Physical Exam Constitutional: Well developed, well nourished, no acute distress, non-toxic appearance. [] HENT: Normocephalic, atraumatic, bilateral external ears normal, oropharynx moist, no oral exudates, nose normal. [] Eyes: PERRLA, EOMI, conjunctiva normal, no discharge. [] Neck: Normal range of motion, no tenderness, supple, no stridor. [] Cardiovascular:Heart rate regular rhythm, no murmur [] Lungs & Thorax: Bilateral breath sounds clear to auscultation [] Abdomen: Bowel sounds normal, soft, no tenderness, no masses, no pulsatile masses. [] Skin: Warm, dry, no erythema, no rash. [] Back: No tenderness, no CVA tenderness. [] Extremities: No tenderness, no cyanosis, no clubbing, ROM intact, no edema. [] Neurologic: Alert and oriented X 3, normal motor function, normal sensory function, no focal deficits noted. [] Psychologic: Affect normal, judgement normal, mood normal. [] Current Patient Data Vital Signs Vital Signs Date Time Temp Pulse Resp B/P (MAP) Pulse Ox O2 Delivery O2 Flow Rate FiO2 08/29/19 17:45 98.2 109 19 127/72 (90) 96 Room Air 98.2 EKG EKG [] Radiology/Procedures Radiology/Procedures [] Course & Med Decision Making Course & Med Decision Making Pertinent Labs and Imaging studies reviewed. (See chart for details) Patient is in the ED for one episode of vomiting that occurred at work, requesting a note for work. D/c with zofran. F/u with PCP in one week Dragon Disclaimer Dragon Disclaimer This electronic medical record was generated, in whole or in part, using a voice recognition dictation system. Departure Departure Impression: Primary Impression: Vomiting Disposition: 01 HOME, SELF-CARE Condition: STABLE Referrals: NO PCP (PCP) follow up with your doctor 1-2 weeks Patient Instructions: Nausea and Vomiting, [id number] Additional Instructions: Please keep your hands clean. Take zofran as needed for nausea or vomiting. Follow up with your doctor in 1-2 weeks Scripts Ondansetron (ONDANSETRON ODT) 4 Mg Tab.rapdis 1 TAB PO PRN Q6-8HRS, #16 TAB Prov: JILLIAN BUTCHER APRN 08/29/19 Problem Qualifiers Primary Impression: Vomiting Vomiting type: unspecified Vomiting Intractability: unspecified Nausea presence: unspecified Qualified Codes: R11.10 - Vomiting, unspecified JILLIAN BUTCHER ACID CLEANER Aug 29, 2019 18:10
== END 2019-08-29 18:16 | disposition home or self-care (01) ==
LOC: ER 17:38
DX: R11.2 Nausea with vomiting, unspecified (principal); F12.90 Cannabis use, unspecified, uncomplicated
CPT/HCPCS: 99283